=== PATIENT | male | born 1970 ===

== ENCOUNTER 2024-10-22 15:53 | Observation (INO) | payer OTHER ==
[~2024-10-22] VITALS: Ht 175.3 cm; Wt 72.0 kg
[~2024-10-22 15:53] MED LIST: CEPH500 PO; HYDACE10B PO; HYDACE5 PO; MUSCLE RELAXANT; NS 1,000 ML IV SCH
[2024-10-22] MEDS ORDERED: Diphth,Pertuss(Acell),Tet Vac 0.5 ML VIAL IM ONE (16:05)
[2024-10-22] MEDS ORDERED: Morphine Sulfate 4 MG/1 ML Injection IV ONE (16:05)
[2024-10-22] MEDS ORDERED: Lactated Ringer's 1,000 ML IV ONE ×2 (16:05→19:00)
[2024-10-22 16:28] LABS: BASOPHILS ABSOLUTE AUTO 0.02 K/mm3 (0.00-0.23); BASOPHILS PERCENT AUTO 0 % (0-2); EOSINOPHILS ABSOLUTE AUTO 0.01 K/mm3 (0.00-0.68); EOSINOPHILS PERCENT AUTO 0 % (0-6); Hematocrit 41.5 % (37.0-53.0); Hemoglobin 15.3 g/dL (13.5-17.5); IMMATURE GRAN ABSOLUTE AUTO 0.09 K/mm3 (0.00-0.10); IMMATURE GRAN PERCENT AUTO 1 % (0-1); LYMPHOCYTES ABSOLUTE AUTO 0.79 K/mm3 (0.84-5.20); LYMPHOCYTES PERCENT AUTO 5 % (21-46); MONOCYTES ABSOLUTE AUTO 1.06 K/mm3 (0.16-1.47); MONOCYTES PERCENT AUTO 6 % (4-13); Mean Corpuscular HGB 30.1 pg (26.0-34.0); Mean Corpuscular HGB Conc 36.9 g/dL (31.5-36.5); Mean Corpuscular Volume 82 fL (80-100); Mean Platelet Volume 9.2 fL (9.1-12.4); NEUTROPHILS ABSOLUTE AUTO 15.47 K/mm3 (1.96-9.15); NEUTROPHILS PERCENT AUTO 89 % (41-73); Platelet Count 233 K/mm3 (150-400); RDW Coefficient Variation 11.8 % (11.7-14.2); RDW Standard Deviation 34.9 fL (35.1-46.3); Red Blood Cell Count 5.08 M/mm3 (4.30-5.90); White Blood Cell Count 17.44 K/mm3 (4.00-11.30)
[2024-10-22 16:35] LABS: International Normalized Ratio 1.02; Prothrombin Time Results 10.9 Sec (9.7-11.5)
[2024-10-22 16:41] LABS: Albumin/Globulin Ratio 1.2 (0.8-1.8); Bilirubin, Total 0.6 mg/dL (0.1-1.0); Bun/Creatinine Ratio 14.6 (12.0-20.0); Calcium, Blood 8.5 mg/dL (8.5-10.1); Creatinine, Blood 0.76 mg/dL (0.60-1.20); Globulin, Blood 3.4 g/dL (2.2-4.0); Magnesium, Blood 1.8 mg/dL (1.6-2.4); Total Protein, Blood 7.4 g/dL (6.4-8.2)
[2024-10-22] MEDS ORDERED: Diazepam 5 MG / ML 2ML SYR IV ONE (17:45)
[2024-10-22 20:15] LABS: Free Thyroxine 1.1 ng/dL (0.70-1.60); Thyroid Stimulating Hormone 1.95 uIU/mL (0.360-4.800)
--- NOTE | 2024-10-22 21:56 | NUR ---
TOOK REPORT FROM ED ROYCE HORVATH.
[2024-10-22 22:46] VITALS: BP 143/94
[2024-10-22] MEDS ORDERED: HydrALAZINE HCl 20 MG / ML 1ML Vial IV PRN (22:55)
[2024-10-22] MEDS ORDERED: Ondansetron 4 MG TAB PO PRN (22:55)
[2024-10-22] MEDS ORDERED: Morphine Sulfate 10 MG/ML 1MLSYR IV PRN (22:55)
[2024-10-22] MEDS ORDERED: FLU VACC TS2024-25(6MOS UP)/PF 45 MCG/0.5 ML SYRINGE IM ONE (22:55)
[2024-10-22 23:57] LABS: U Amphetamine Screen Not Detected; U Barbituate Screen Not Detected; U Benzodiazapine Screen Not Detected; U Buprenorphine Screen Not Detected; U Cannabinoids Screen Not Detected; U Cocaine Screen Not Detected; U Methadone Screen Not Detected; U Methamphetamine Screen Not Detected; U Opiates Screen DETECTED; U Oxycodone Screen Not Detected; U Phencyclidine Screen Not Detected
[2024-10-23] MEDS ORDERED: Potassium Chloride 40 MEQ in NS 250 ML IV ONE (01:40)
[2024-10-23 03:54] VITALS: BP 146/96
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
[2024-10-23 06:34] LABS: BASOPHILS PERCENT AUTO 0 % (0-2); EOSINOPHILS PERCENT AUTO 0 % (0-6); Hemoglobin 13.8 g/dL (13.5-17.5); IMMATURE GRAN ABSOLUTE AUTO 0.05 K/mm3 (0.00-0.10); IMMATURE GRAN PERCENT AUTO 1 % (0-1); LYMPHOCYTES PERCENT AUTO 14 % (21-46); MONOCYTES ABSOLUTE AUTO 0.66 K/mm3 (0.16-1.47); MONOCYTES PERCENT AUTO 8 % (4-13); Mean Corpuscular HGB 29.6 pg (26.0-34.0); Mean Corpuscular HGB Conc 36.3 g/dL (31.5-36.5); Mean Corpuscular Volume 81 fL (80-100); Mean Platelet Volume 8.8 fL (9.1-12.4); NEUTROPHILS ABSOLUTE AUTO 6.12 K/mm3 (1.96-9.15); NEUTROPHILS PERCENT AUTO 77 % (41-73); Platelet Count 181 K/mm3 (150-400); RDW Coefficient Variation 11.9 % (11.7-14.2); Red Blood Cell Count 4.67 M/mm3 (4.30-5.90); White Blood Cell Count 7.93 K/mm3 (4.00-11.30)
[2024-10-23 06:53] LABS: International Normalized Ratio 1.07; Prothrombin Time Results 11.4 Sec (9.7-11.5)
[2024-10-23 07:10] VITALS: BP 136/91
[2024-10-23 07:14] LABS: Albumin, Blood 3.6 g/dL (3.4-5.0); Albumin/Globulin Ratio 1.1 (0.8-1.8); Bilirubin, Total 0.9 mg/dL (0.1-1.0); Bun/Creatinine Ratio 14.3 (12.0-20.0); Calcium, Blood 8.4 mg/dL (8.5-10.1); Creatinine, Blood 0.63 mg/dL (0.60-1.20); Globulin, Blood 3.2 g/dL (2.2-4.0); Total Protein, Blood 6.8 g/dL (6.4-8.2)
[2024-10-23] MEDS ORDERED: Enoxaparin 40 MG/0.4 ML SYR SC SCH (09:00)
[2024-10-23] MEDS ORDERED: HYDROCODONE-AC1 EA10 PO (10:30)
[2024-10-23] MEDS ORDERED: IBUP400 PO (10:33)
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
--- NOTE | 2024-10-23 10:54 | NUR ---
DC'D HOME, DC INSTRUCTIONS GIVEN, VERBALIZED UNDERSTANDING, ZIO PATCH PLACED BY [facility] W/ INSTRUCTIONS GIVEN TO PT.
== END 2024-10-23 10:48 | disposition home or self-care (01) ==
LOC: ER 15:53 → SURS 15:54 → ERHOLD 21:00 → ER 21:00 → ERHOLD 22:32 → SURS 22:32
PROVIDERS: Student in an Organized Health Care Education/Training Program; ADMIT Surgery
DX: S32.039A Unspecified fracture of third lumbar vertebra, initial encounter for closed fracture (principal); S32.049A Unspecified fracture of fourth lumbar vertebra, initial encounter for closed fracture; V47.5XXA Car driver injured in collision with fixed or stationary object in traffic accident, initial encounter; R00.1 Bradycardia, unspecified; R03.0 Elevated blood-pressure reading, without diagnosis of hypertension; E87.6 Hypokalemia; D72.829 Elevated white blood cell count, unspecified
CPT/HCPCS: 36415; 70450; 70496; 70498; 71260; 72125; 73030; 74177; 80053; 80320; 83690; 83735; 84439; 84443; 84484; 85025; 85610; 85730; 86850; 86900; 86901; 90471; 90715; 93005; 93010; 93246; 96361; 96372; 96374; 96375; 99285-25; G0378; J1650; J2270; J3360; J3480; J7030; J7050; J7120; Q9967